=== PATIENT | male | born 1950 | race Caucasian/White ===

== ENCOUNTER 2016-10-10 05:25 | Day surgery (SDC) | payer OTHER ==
[~2016-10-10] VITALS: Ht 167.6 cm; Wt 92.5 kg
[~2016-10-10 05:25] MED LIST: ATOR20TA65 PO; GLIP5TAB12 PO; LEVO50TA70 PO; METF10002 PO; RANI300T4 PO
[2016-10-10] MEDS ORDERED: LACTATED RINGERS 1,000 ML IV SCH (06:45)
[2016-10-10] MEDS ORDERED: LIDOCAINE HCL 1% 20ML VIAL (Pyxis) INJ ONE ×2 (07:25→07:42)
[2016-10-10] MEDS ORDERED: BUPIVACAINE HCL/PF 0.25% (2.5MG/ML) 10ML ONE (07:25)
[2016-10-10] MEDS ORDERED: BACITRACIN 50,000 UNITS/VIAL ONE (07:36)
[2016-10-10] MEDS ORDERED: NORMAL SALINE 0.9% 10 ML SYR ONE (07:37)
[2016-10-10] MEDS ORDERED: FENTANYL CITRATE/PF 50MCG/ML 2ML VIAL ONE (07:41)
[2016-10-10] MEDS ORDERED: MIDAZOLAM HCL 2 MG/2 ML VIAL ONE (07:41)
[2016-10-10] MEDS ORDERED: PROPOFOL 200MG/20ML VIAL IV ONE (07:42)
[2016-10-10] MEDS ORDERED: CEFAZOLIN SODIUM 1000MG/VIAL ONE (07:49)
[2016-10-10] MEDS ORDERED: SKIN ADHESIVE 0.7 GM EA TOP ONE (08:06)
[2016-10-10] MEDS ORDERED: BACITRACIN ZINC 15GM TUBE TOP ONE (08:06)
[2016-10-10] MEDS ORDERED: ONDANSETRON HCL 4MG/2ML VIAL ONE (08:12)
[2016-10-10] MEDS ORDERED: SODIUM CHLORIDE 0.9% 1,000 ML IV SCH (08:39)
[2016-10-10] MEDS ORDERED: HYDROMORPHONE HCL/PF 2MG/ML CPJ IV PRN (08:45)
[2016-10-10] MEDS ORDERED: ONDANSETRON HCL 4MG/2ML VIAL IV PRN (08:45)
== END 2016-10-10 09:40 | disposition home or self-care (01) ==
LOC: OR 05:25
PROVIDERS: ATTEND Urology
DX: N43.2 Other hydrocele (principal); E11.9 Type 2 diabetes mellitus without complications; Z83.3 Family history of diabetes mellitus; I21.3 ST elevation (STEMI) myocardial infarction of unspecified site; K21.9 Gastro-esophageal reflux disease without esophagitis; E03.9 Hypothyroidism, unspecified; E66.9 Obesity, unspecified; Z85.46 Personal history of malignant neoplasm of prostate
CPT/HCPCS: 55040; 82962; 88302; 88304; A4216; J0690; J2250; J2405; J3010; J3490; J2704